=== PATIENT | female | born 1930 | race Caucasian/White ===

== ENCOUNTER 2019-06-26 08:33 | Observation (INO) ==
--- NOTE | 2019-06-26 08:55 | Diag Imaging Result Doc PS360 ---
EXAM: CT HEAD W/O CONTRAST HISTORY: stoke like symptoms TECHNIQUE: CT head without contrast COMPARISON: None. FINDINGS: No parenchymal hemorrhage. No epidural or subdural hematoma. No subarachnoid hemorrhage. There is moderate atrophy. Mild chronic microvascular ischemic changes. No mass identified on this noncontrasted exam. No hydrocephalus. Small air-fluid levels in the maxillary sinuses.. IMPRESSION: 1.No hemorrhage 2.Atrophy with chronic microvascular ischemic changes 3.Maxillary sinusitis This exam was performed using automated exposure control, adjustment of mA or kV according to patient size, and/or use of iterative reconstruction technique. Electronically signed by Jaime Pascal 06/26/2019 8:52 AM
--- NOTE | 2019-06-26 09:05 | PROVIDER DOCUMENTATION ---
HPI-Neurological Disorder - General Chief Complaint: Stroke-Like Symptoms Stated Complaint: "POSS STROKE" Time Seen by Provider: 06/26/19 08:55 Source: patient Allergies/Adverse Reactions: Patient Allergies Allergy/AdvReac Type Severity Reaction Status Date / Time lisinopril AdvReac Severe SWELLING Verified 04/30/12 16:30 Home Medications: Home Medication List Medication Instructions Recorded Confirmed Last Taken Type Levothyroxine [Synthroid] 50 microgm PO DAILY 04/30/12 06/26/19 06/25/19 07:00 History Losartan Potassium 50 mg PO DAILY 04/30/12 06/26/19 06/25/19 07:00 History Metoprolol Succinate E.r. [Toprol 25 mg PO DAILY 04/30/12 06/26/19 06/25/19 07:00 History Xl] Pantoprazole Sodium 40 mg PO DAILY 04/30/12 06/26/19 06/25/19 07:00 History Aspirin [Aspir-Low] 81 mg PO DAILY 06/26/19 06/26/19 Unknown History Atorvastatin Calcium 20 mg PO DAILY 06/26/19 06/26/19 06/25/19 07:00 History Meloxicam 15 mg PO DAILY 06/26/19 06/26/19 06/26/19 07:00 History Mv-Min/FA/Vit K/Lycop/Lut/Zeax 1 tab PO DAILY 06/26/19 06/26/19 06/25/19 07:00 History [Ocuvite Eye Plus Multi Tablet] - History of Present Illness-Neuro Nature of Presenting Problem: patient is a 89 year old white female complaining of left arm tingling and weakness in her fingers when awakening this am. Denies headaches, chest pain, or SOB. Patient is not candidate for TPA due to unknown onset of symptoms. Severity: reports: mild Onset/Duration: reports: unsure Timing: reports: still present Context: reports: none Character of Altered Mental Status: reports: N/A Character of Deficits: reports: new weakness, altered sensation New weakness or altered sensation location:: reports: LUE Cognitive Baseline: alert, oriented x3 Associated Symptoms: denies: short of breath, chest pain Similar Symptoms Previously?: No - Seizure First time to have a seizure?: No Witnessed seizure?: No Review of Systems - Adult - REVIEW OF SYSTEMS - ADULT Constitutional: denies: chills, fever Eyes: reports: no symptoms reported Ears, Nose, Mouth & Throat: reports: no symptoms reported Cardiovascular: denies: chest pain Respiratory: denies: shortness of breath Gastrointestinal: denies: abdominal pain, nausea, vomiting Genitourinary: denies: dysuria Musculoskeletal: reports: no symptoms reported Integumentary: reports: no symptoms reported Neurological: reports: see HPI, other (WEAK IN LEFT HAND, TINGLING IN LUE) Psychiatric: reports: no symptoms reported Endocrine: reports: no symptoms reported Hematologic/Lymphatic: reports: no symptoms reported Allergic/Immunologic: reports: no symptoms reported All Other Systems: Reviewed and Negative Past History - Adult - PAST MEDICAL HISTORY-ADULT Review of Records: reports: Old Records Reviewed, Nursing Assessment Review, Medications Reviewed Cardiovascular: reports: A-Fib, HTN, other (PVC's, partially occluded left carotid artery- followed by Dr. Cosby) Respiratory: reports: denies history Gastrointestinal: reports: denies history Genitourinary: reports: denies history Musculoskeletal: reports: denies history Neurological: reports: denies history Psychiatric: reports: denies history Endocrine/Immune: reports: denies history - PRIOR SURGERIES/PROCEDURES Surgical/Procedure History: reports: appendectomy, hysterectomy, BTL - FAMILY HISTORY Family History: reviewed, not pertinent - SOCIAL HISTORY Smoking: denies Substance Use: denies Living Situation: family Physical Exam- Neurological - Physical Exam-Neuro Initial Vital Signs Reviewed: Yes General Appearance: alert, no apparent distress Eye Exam: bilateral eye: normal inspection, PERRL HENMT: moist mucous membranes Head Injury: no evidence of injury Neck: non-tender, full range of motion, supple Respiratory: lungs clear Cardiovascular: regular rate, rhythm Abdominal Exam: non tender, soft Peripheral Pulses: radial (R): 2+, radial (L): 2+ Extremity: other (decreased left handgrip, weakness in left lower extremity( old)) Motor/Sensory: other (tingling in left upper extremity, good capillary refill in all extremities) Integumentary: normal color, normal turgor Psych/Mental Status: normal mood/affect, normal thought content, normal thought process, oriented x 3, anxious - Glascow Coma Scale Best Eye Response: (4) open spontaneously Best Verbal Response: (5) oriented Best Motor Response: (6) obeys commands Total Glascow Score: 15 Progress - PLAN OF CARE/RESULTS Result Diagrams: 06/26/19 09:50 06/26/19 09:50 - CT/MRI 1 CT Study: Head (EXAM: CT HEAD W/O CONTRAST HISTORY: stoke like symptoms TECHNIQUE: CT head without contrast COMPARISON: None. FINDINGS: No parenchymal hemorrhage. No epidural or subdural hematoma. No subarachnoid hemorrhage. There is moderate atrophy. Mild chronic microvascular ischemic changes. No mass identified on this noncontrasted exam. No hydrocephalus. Small air-fluid levels in the maxillary sinuses.. IMPRESSION: 1.No hemorrhage 2.Atrophy with chronic microvascular ischemic changes 3.Maxillary sinusitis This exam was performed using automated exposure control, adjustment of mA or kV according to patient size, and/or use of iterative reconstruction technique. Electronically signed by Jaime Pacsal 06/26/2019 8:52 AM) - CONSULTS/PCP/HOSPITALIST Notification #1 *Consult/PCP/Hospitalist*: Dr. Flores covering for Dr. Walker Time Discussed: 10:00 Reason/Comments: admit pt, order cardiac echo,carotid doppler,PT Consult Disposition: Admit Departure - Departure Date of Disposition Decision: 06/26/19 Time of Disposition Decision: 10:04 DIAGNOSIS: CVA (cerebral vascular accident) Qualifiers: CVA mechanism: unspecified Qualified Code(s): I63.9 - Cerebral infarction, unspecified Disposition: HOME 01 Certified Medical Emergency: Emergent Condition: Stable - Critical Care Note This patient required my direct & personal management of CC.: No Attestation - Physician/ FARIBA Attestation Patient care was provided by Advanced Practice Provider:: No The physician spent face to face time with patient:: Yes Advanced Practice Provider documentation review:: Supervising physician onsite and consulted in the evaluation and care of this patient. The physician did have a face to face encounter with the patient. - NIH Stroke Scale NIH Type: Initial Evaluation Level of Consciousness: 0-Alert LOC Questions (ask month and age): 0-Answers Both Correctly LOC Commands (ask to open & close eyes;make a fist, let go): 0-Obeys Both Correctly Best Gaze (horizontal eye movement): 0-Normal Visual (use finger movement, counting or visual threat): 0-No Visual Loss Facial Palsy (show teeth or raise eyebrows & close eyes tght: 0-Symmetrical Movement Motor Function-left arm: 0-Normal Motor Function-right arm: 0-Normal Motor Function-left le-Some Effort Against Norphlet (old weakness due to pr ior polio) Motor Function-right le-Normal Limb Ataxia(emvfgn-fsvv-[id number], or heel to kinsey): 0-No Ataxia Sensory(pin prick to face,arms,trunk,legs-compare side/side): 0-No Ataxia Best Language(name item/read sentence.Ex-Down to Earth): 0-No Aphasia Dysarthria(Pt read words or say words Ex.Mama,Tip-Top,Thanks: 0-Normal Articulation Extinction and Inattention: 0-Normal NIH Total Score: 2
--- NOTE | 2019-06-26 09:21 | Diag Imaging Result Doc PS360 ---
EXAM: CHEST-PORTABLE 06/26/2019 HISTORY: stroke like symptoms TECHNIQUE: AP portable upright at 0910 COMMENT: There is some apical pleural thickening. There is no evidence of acute cardiac or pulmonary disease. Compared to 02/12/2011 there has been no significant change. IMPRESSION: Stable chest. Electronically signed by Randal Lackey 06/26/2019 9:19 AM
[2019-06-26] MEDS ORDERED: ZOFRAN IV PRN (10:15)
[2019-06-26 10:19] LABS: URINE SOURCE CATH
[2019-06-26 10:42] LABS: UR AMPHETAMINES QUAL NONE DETECTED (NONE DETECT); UR BARBITUATES QUAL NONE DETECTED (NONE DETECT); UR BENZODIAZEPIN QUAL NONE DETECTED (NONE DETECT); UR CANNABINOIDS QUAL NONE DETECTED (NONE DETECT); UR COCAINE QUAL NONE DETECTED (NONE DETECT); UR METHADONE QUAL NONE DETECTED (NONE DETECT); UR OPIATES QUAL NONE DETECTED (NONE DETECT); UR OXYCODONE QUAL NONE DETECTED (NONE DETECT); UR PCP QUAL NONE DETECTED (NONE DETECT)
[2019-06-26 10:43] LABS: BASO# 0.02 X1000 (0.0-0.2); BASO% 0.2 % (0.0-0.8); EOS# 0.13 X1000 (0.0-0.7); HEMATOCRIT 42.3 % (37.0-47.0); HEMOGLOBIN 14.1 g/dL (12.0-16.0); IMM GRAN# 0.03 X1000 (0.0-0.04); IMM GRAN% 0.2 % (0.0-0.5); LYMPH# 3.21 X1000 (1.2-3.4); LYMPH% 24.6 % (20.5-51.1); MCH 30.1 PG (27-31); MCHC 33.3 g/dL (33-37); MCV 90.4 FL (81-99); MONO# 0.81 X1000 (0.11-0.59); MONO% 6.2 % (1.7-9.3); MPV 10.8 FL (7.4-10.4); NEUT# 8.83 X1000 (1.4-6.5); NEUT% 67.8 % (42.2-75.2); PLT 277 X1000 (130-400); RBC 4.68 XMIL (4.2-5.4); RDW 13.5 % (11.5-14.5); WBC 13.03 X1000 (4.8-10.8)
[2019-06-26 10:45] LABS: BILIRUBIN URINE NEGATIVE (NEGATIVE); BLOOD URINE NEGATIVE (NEGATIVE); COLOR STRAW; GLUCOSE URINE NEGATIVE (NEGATIVE); KETONE URINE NEGATIVE (NEGATIVE); LEUKOCYTES URINE TRACE (NEGATIVE); NITRITE URINE NEGATIVE (NEGATIVE); PH URINE 6.5; PROTEIN URINE NEGATIVE (NEGATIVE); TURBIDITY URINE CLEAR (CLEAR); UROBILINOGEN URINE NORMAL (NORMAL)
[2019-06-26 10:46] LABS: UR EPITHELIAL CELLS <10 /HPF (<10); URINE BACTERIA NEGATIVE /HPF; URINE RBC <10 /HPF (<10); URINE WBC <10 /HPF (<10)
[2019-06-26 11:05] LABS: INR 1.02; PROTIME 13.5 Seconds (11.0-16.0)
[2019-06-26 11:06] LABS: PTT 30.6 Seconds (22.3-41.8)
[2019-06-26 11:15] LABS: AGAP 16; ALB/GLOB RATIO 1.7; ALBUMIN 4.5 g/dL (3.5-5.0); ALKALINE PHOSPHATASE 123 U/L (32-104); BUN 24 mg/dL (8-22); CALCIUM 9.8 mg/dL (8.8-10.2); CHLORIDE 109 mmol/L (98-107); COSMO 298; CREATININE 0.8 mg/dL (0.5-0.9); ESTIMATED GFR > 60; GLUCOSE 88 mg/dL (70-104); GOT 24 U/L (10-30); GPT 18 U/L (10-36); POTASSIUM 4.3 mmol/L (3.5-5.1); SODIUM 148 mmol/L (136-145); TCO2 23 mmol/L (25-35); TOTAL BILIRUBIN 0.59 mg/dL (0.20-1.00); TOTAL PROTEIN 7.1 g/dL (6.3-8.3)
[2019-06-26] MEDS ORDERED: PLAVIX PO ONE (13:22)
--- NOTE | 2019-06-26 14:18 | HISTORY AND PHYSICAL ---
CHIEF COMPLAINT: Left arm and hand numbness and clumsiness. PRESENT ILLNESS: Mrs. Arana is an 89-year-old woman who awoke from sleep this morning with new onset left arm tingling and clumsiness. She is able to move the fingers and has reasonable hand drafter castings strength but can tell that her usual dexterity is missing. She is right handed. She has no previous history of cerebrovascular disease but has recently seen Dr. Puente and found to have a left carotid obstruction approaching surgical significance. She was started by him on aspirin several months ago. Within the last 3-4 month, she has had both carotid Doppler and an echocardiogram so these will not be repeated unless the nutrition consultant requests them. Her echocardiogram was fairly unremarkable. She had no significant valvular issues and normal left ventricular ejection fraction. It is now over 6 hours since wakening and her deficits have been fairly stable. She denies any difficulty swallowing, any speech problems, or any difficulty walking. She was able to call for her relative to bring her to the hospital. Her only previous cardiac history is PVCs for which she is taking Toprol XL 25 mg. 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 PAST SURGICAL HISTORY: Her surgical history is remarkable for bilateral cataract surgery, remote total hysterectomy, bladder suspension. SOCIAL HISTORY: She is and lives alone. She smoked in the past but quit in 1994. She does not use alcohol. FAMILY HISTORY: Positive for hypertension, strokes, and coronary disease. REVIEW OF SYSTEMS: Constitutional: No fever, chills, weight loss. HEENT exam: She has a history of macular degeneration of the right eye for which she sees a retina specialist and has had previous injections. Her vision is 20/30 in the right eye, 20/20 in the left. Cardiovascular: No recent chest pain or edema. She has occasional palpitations. No orthopnea, PND, or pedal edema. Respiratory: No shortness of breath, cough, or wheezing. Musculoskeletal: Occasional left foot pain. Due to her left leg being shorter, she uses a cane when walking. Neurologic: No headache or vertigo. Psychological: She denies anxiety, depression, or difficulty sleeping. PHYSICAL EXAMINATION: VITAL SIGNS: Unremarkable except for blood pressure 170/98. SKIN: Warm, pink, and dry. Skin turgor is adequate. HEENT EXAM: Pupils equal, round, and reactive to light. Extraocular movements are intact. Oropharynx is benign. NECK: Supple with no adenopathy or JVD. There is an intermittent very faint bruit heard on the left side. No adenopathy. CARDIOVASCULAR: Regular rate and rhythm. Normal S1, S2. No murmurs, rubs, or gallops are appreciated. LUNGS: Clear to auscultation and percussion bilaterally. ABDOMEN: Soft, and nontender with active bowel sounds. No guarding or rebound tenderness. MUSCULOSKELETAL: Her left leg is somewhat shorter and there is decreased muscle mass noted. NEUROLOGIC EXAM: Mental status is normal. Speech is clear and easily understood. Her cranial nerve examination is unremarkable, uonyab-fh-pfyt is somewhat less coordinated on the left side and her handgrip is 5/5 on the right side and 4+/5 on the left side. Gait is not tested. PSYCHIATRIC: She is alert and oriented with appropriate mood and affect. DATABASE: White blood count is minimally elevated, otherwise CBC is normal. Urinalysis is negative. Chemistry profile is unremarkable. A CT scan of the brain shows no acute infarction. Chest x-ray is unremarkable. ASSESSMENT: 1. Left arm numbness, tingling, and clumsiness probably lacunar infarction on the right side. Her left carotid disease seems unlikely to be involved but I think a Cardiology opinion is worth seeking to see if there is any indication for surgical intervention. 2. History of polio in the left leg. 3. 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 4. History of palpitations. 5. Left carotid stenosis. 6. Hypercholesterolemia. 7. Hypothyroidism, replaced. 8. History of hypertension but allow permissive hypertension in the parth-infarct period. TREATMENT PLAN: Cardiology consultation, begin Plavix in addition to her aspirin. cc: Jimmie Flores MD MTDD
--- NOTE | 2019-06-26 14:29 | EKG Report ---
Test Performed on : 06/26/2019 2:22:02 PM Test Reason : Stroke like symptoms Blood Pressure : / mmHG Vent. Rate : 058 BPM Atrial Rate : 058 BPM P-R Int : 134 ms QRS Dur : 090 ms QT Int : 440 ms P-R-T Axes : 085 039 036 degrees QTc Int : 431 ms Sinus bradycardia. with premature atrial complexes. in a pattern of bigeminy. Septal infarct (cited on or before 25-MAR-2011) Abnormal ECG When compared with ECG of 25-MAR-2011 07:51, premature atrial complexes. are now present Confirmed by Saman CASILLAS, P.J.M ([id number]) on 06/27/2019 5:39:02 PM
[2019-06-26] MEDS: ASPIRIN PO SCH (14:32)
--- NOTE | 2019-06-26 14:40 | CARDIOLOGY CONSULTATION ---
DATE: 06/26/2019 HISTORY OF PRESENT ILLNESS: An 89-year-old, lady who was seen today, who came to the emergency room this morning with left arm tingling and weakness in her left fingers. She complains of having noticed this weakness when she woke up earlier this morning. There are no palpitations. She denies any chest pain. There is no orthopnea or paroxysmal nocturnal dyspnea. She has had premature atrial contraction beats and PVCs in the past. No history of atrial fibrillation. Denies any chest pain. There is no orthopnea or paroxysmal nocturnal dyspnea. PAST MEDICAL HISTORY: 1. Hypertension. 2. Gastroesophageal reflux disease. 3. Hyperlipidemia. 4. Peripheral vascular disease with carotid disease with 60 to 70 percent stenosis in the left carotid artery and 0 to 30 percent stenosis in the right carotid artery. 5. Hypothyroidism. HOME MEDICATIONS: Include simvastatin 20, Protonix 40, metoprolol 25 mg a day, losartan 100 mg a day, levothyroxine 50 mcg a day. ALLERGIES: She is allergic to lisinopril. REVIEW OF SYSTEMS: A 14-point review of systems was done. GI System: There is no history of nausea, vomiting, diarrhea. There is no history of hematemesis or melena. Central Nervous System: As above. In addition, she does not complain of any headaches. System: There is no dysuria or hematuria. PHYSICAL EXAMINATION: Blood pressure 143/52. When she came to the emergency room, blood pressure was 280/110, subsequent blood pressure was 170/79. First and second heart sounds were heard. There was a soft carotid bruit. There was no S3 gallop. Respiratory System: Normal air entry. There are no crepitations or rhonchi. Abdomen: Soft, nontender. There was no guarding or rigidity. Bowel sounds were heard. Central Nervous System: Alert, was moving all 4 extremities. She had some weakness in her left upper extremity. DIAGNOSTIC DATA: 1. A chest x-ray was done which was unremarkable. 2. CT scan of her head was done which revealed no hemorrhage, atrophic microvascular ischemic changes. LABORATORY EXAMINATION: Sodium 148, potassium 4.3, BUN 24, creatinine 0.8. Troponin negative. Alkaline phosphatase 123. WBC 13.3, hemoglobin 14.1, hematocrit 42, platelet count of 277,000. ASSESSMENT AND PLAN: 1. Ms. Betzy Arana is an 89-year-old, lady who has a history of palpitations with premature atrial contraction beats and premature ventricular beats in the past, history of hypertension. Otherwise in excellent health but comes in with complaints of left arm weakness. When she came to the emergency room, she had accelerated severe hypertension. Currently, blood pressure is stable. As far as the etiology of the stroke is concerned, this could be secondary to the accelerated hypertension. Regardless, her electrocardiogram is pending. She seems to be in sinus rhythm. She does not have a history of atrial fibrillation. We will monitor her overnight to make sure that there is no atrial fibrillation to account for her symptoms. 2. We will get an echocardiogram to assess cardiac and valvular function. 3. She has peripheral vascular disease and gas undergone carotid Dopplers today. Results pending. The previous carotid arteries revealed a 60 to 70 percent stenosis in the left carotid system and she has symptoms on the opposite side. 4. I would recommend continuing with aspirin at the present time. Thank you for the consult. We will follow hospital course. cc: MD Jimmie Mac MD
[2019-06-26] MEDS: COZAAR PO SCH (15:56)
[2019-06-26] MEDS ORDERED: LIPITOR PO SCH (21:00)
[2019-06-26] MEDS ORDERED: TOPROL XL PO SCH (21:00)
[2019-06-27] MEDS ORDERED: SYNTHROID PO SCH (09:00)
[2019-06-27] MEDS ORDERED: NORVASC PO SCH (09:00)
[2019-06-27] MEDS ORDERED: OCUVITE LUTEIN & ZEAXANTHIN PO SCH (09:00)
[2019-06-27] MEDS ORDERED: PLAVIX PO SCH (09:00)
[2019-06-27] MEDS: COZAAR PO SCH (09:41)
[2019-06-27] MEDS: ASPIRIN PO SCH (09:42)
--- NOTE | 2019-06-27 10:43 | ECHO REPORT ---
ORDER DATE: 06/26/2019 INTERPRETING PHYSICIAN: Polo Puente MD. CLINICAL INDICATIONS: Patient with stroke. M-MODE MEASUREMENTS: Left ventricle end diastole: 4.5 cm. Left ventricle end systole: 2.2 cm. Posterior wall: 0.8 cm. Interventricular septum: 0.9 cm. Left atrium: 4.7 cm. Aortic diameter: 2.9 cm. SUMMARY OF 2-DIMENSIONAL IMAGIN. The left ventricular function appears to be normal. Ejection fraction of 55%. 2. The left atrium appears to be mildly enlarged. 3. The aortic valve has three cusps. It shows some sclerosis. Color flow mapping indicates mild to moderate degree of regurgitation. There is no stenosis. 4. The mitral valve shows some degree of thickening. Color flow mapping indicates mild degree of regurgitation. 5. Pulsed wave Doppler of mitral inflow shows normal E/A ratio. 6. Tissue Doppler of septal and lateral mitral annulus averages 5 cm. There is elevated E/e' prime ratio. 7. Left atrial pressure is elevated consistent with diastolic dysfunction. 8. The tricuspid valve shows mild degree of regurgitation. 9. Inferior vena cava is not dilated. 10.Pulmonary pressure is estimated at 38 mmHg. The pulmonic valve is unremarkable. 11.The right-sided chambers appear to be normal. 12.There is no pericardial effusion, no mass, and no thrombus. Clinical correlation is recommended. cc: MD Jimmie Porter MD
[2019-06-27 14:49] VITALS: BP 172/59
--- NOTE | 2019-06-27 21:25 | Carotid Study ---
DATE: 06/26/2019 REQUESTING PHYSICIAN: Dr. Flores. 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 INDICATION: CVA symptoms. EQUIPMENT: [employer] Vivid E9 ultrasound system with a 9L-D transducer. Previous comparison from 01/21/2019. FINDINGS: Complete diagram ultrasound images can be seen, scanned in the patient's medical record. The peak systolic velocity on the right side is noted in the distal internal carotid artery and is noted to be 131. The peak systolic velocity on the left side is in the mid internal carotid artery and is noted to be 244. The calculated internal/common ratio on the right is 1.43, left 2.37. The calculated stenosis on the right is 40% to 59%, and the left 60% to 79%. The right vertebral artery has antegrade flow. The left one has a to-and-fro almost retrograde flow. There is some atherosclerosis noted to bilateral carotid arteries. When compared to previous study, the overall stenosis appears to be stable. The to-and-fro pattern noted in the left vertebral artery is suggestive of increasing degree of subclavian stenosis. INTERPRETATION: Essentially stable bilateral carotid stenosis, with the right side being 40% to 59% and the left side being 60% to 79%. 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 I would recommend handling that clinically and getting further imaging with potential CTA. cc: MD Jimmie Hardwick MD
== END 2019-06-27 16:43 | disposition home or self-care (01) ==
LOC: EDIPHOLD 08:33 → ED 08:33 → 3N 13:54
PROVIDERS: ADMIT Internal Medicine; ATTEND Internal Medicine